=== PATIENT | male | born 1990 | race Native Hawaiian/Other Pacific Islander ===

== ENCOUNTER 2016-11-30 06:00 | Emergency (ER) | payer OTHER ==
[~2016-11-30] VITALS: Ht 167.6 cm; Wt 95.0 kg
[2016-11-30 06:08] VITALS: BP 128/81; PULSE 104; RESP 18; O2SAT 98
--- NOTE | 2016-11-30 06:29 | ED.REPORT ---
HPI-Abd Pain M Under 40 Date of Service Nov 30, 2016 ED Provider: Ron Diop MD 26 year old Filipino-speaking male presents to the ER accompanied by a female traffic inspector who translates complaining of two days of fever and sharp left testicle pain. He states that symptoms initially onset with pain, followed by the development of fever. Associated symptom of dysuria. Patient denies penile discharge, testicular swelling, and history of similar. Pain is exacerbated by standing. Symptoms have been treated with Tylenol at 04:00 this morning. Nursing Notes Stated Complaint: GROIN AND STOMACH PAIN,FEVER Chief Complaint: Male Abdominal Pain Nursing Notes Reviewed: Yes Allergies: Coded Allergies: No Known Allergies (Unverified Allergy, Unknown, 11/30/16) Scheduled Doxycycline Hyclate (Doxycycline Hyclate) 100 Mg Tablet 100 MG PO BID Scheduled PRN Ibuprofen (Ibuprofen) 800 Mg Tablet 800 MG PO TID PRN PRN For Pain Ondansetron ODT (Ondansetron ODT) 8 Mg Tab.rapdis 8 MG PO Q4H PRN PRN For Nausea oxyCODONE-Acetaminophen 5-325 mg (oxyCODONE-Acetaminophen 5-325 mg) 1 Each Tablet 1-2 TAB PO Q4H PRN PRN For Pain General Time Seen by MD: 06:26 Chief Complaint Testicular pain L Hx Obtained From: Patient Arrived By: Walk-in Sudden in Onset?: No Onset Occurred: 2 days ago Symptom Duration: Since onset Associated with: Reports: Dysuria Pertinent Negative: Pt denies other symptoms Pertinent Negative: Relieved by nothing Similar Sx Previous: No Past Medical History Past Medical History Healthy Past Surgical History denies Smoking History Current Every Day Smoker Social History Alcohol Use: Denies alcohol use Drug Use: Denies drug use Other Social History: Good social support Occupation lives by self Ambulatory Status Independent Review of Systems Constitutional: Reports: Fever Respiratory: Denies: Non-productive cough, Shortness of breath Cardiovascular: Denies: Chest pain GI: Denies: Constipation, Diarrhea Male: Reports Dysuria, Reports Testicular pain (Left), Denies Penile discharge Complete sys rev & neg: except as marked. Physical Exam Initial Vital Signs Vital Signs (First) Date Time Temp Pulse Resp B/P Pulse Ox O2 Delivery O2 Flow Rate FiO2 11/30/16 06:08 37.9 104 18 128/81 98 Room Air Initial VS: Reviewed, Vital signs abnormal Head / Eyes: Atraumatic, Normocephalic Neck: Supple, Non-tender, Full range of motion Skin: Warm, Dry, No cyanosis Neurologic: Alert, Oriented, Nonfocal General/Constitutional: Awake, Alert, Well developed, Well nourished Respiratory / Chest: Breath sounds NL, Breath sounds = bilat, No respiratory distress, No rales, No rhonchi, No wheezing, No stridor Cardiovascular: Regular rhythm, No murmurs, Peripheral circulation NL Heart Rate / Rhythm: Positive: Tachycardia Abdomen: Soft, Non-tender, No guarding, No rebound, No distention Male Genitourinary: Penis NL, No penile discharge, Testes NL, Scrotal/perineal skin NL Testes / Epidid / Scrotum: Positive: Testis tender L No scrotal edema. No lymphadenopathy. Right testicle nontender. Interpretation & Diagnostics PROCEDURE: US TESTICULAR SONOGRAM WITH DOPPLER INDICATIONS: L testicular pain TECHNIQUE: Real-time scanning was performed of the scrotum and testicles, with image documentation. Color and pulse Doppler interrogation was performed of both testicles. COMPARISON: None. FINDINGS: Right: Testicle is normal in size at 4.2 x 1.8 x 3.2 cm, and homogenous in echotexture. Epididymis is normal in overall size and morphology. No hydrocele or varicoceles. Overlying scrotal skin is normal in thickness. Left: Testicle is normal in size at 4.0 x 2.2 x 3.0 cm, and homogeneous in echotexture. Epididymis is normal in overall size and morphology. No hydrocele or varicoceles. Overlying scrotal skin is normal in thickness. Doppler: Color and pulse Doppler demonstrate increased, asymmetric flow within the left testicle and epididymis. IMPRESSION: 1. Increased, asymmetric flow involving the left testicle and epididymis suspicious for epididymoorchitis. Recommend clinical correlation. Dictated by: Jose ANDRADE Interpreted: Karen Saeed MD on 11/30/2016 at 9: 39 Transcribed by: AIDEN on 11/30/2016 at 9:39 Lab Results Interpretation Result Diagram: 11/30/16 0645 11/30/16 0645 Test 11/30/16 06:25 11/30/16 06:45 Urine Color Yellow (YELLOW) Urine Appearance Clear (CLEAR,HAZY) Urine pH 6.5 (5.0-8.0) Urine Specific [place] 1.020 (1.003-1.035) Urine Protein Tracemg/dL (NEG,TRACE) Urine Glucose (UA) Negativemg/dL (NEGATIVE) Urine Ketones Negativemg/dL (NEGATIVE) Urine Occult Blood Trace (NEGATIVE) Urine Nitrite Negative (NEGATIVE) Urine Bilirubin Negative (NEGATIVE) Urine Urobilinogen 4.0mg/dL (NORMAL) Urine Leukocyte Esterase Negative (NEGATIVE) Urine RBC 0-2/hpf (0-2) Urine WBC 0-5/hpf (0-5) Urine Epithelial Cells Occasional/hpf (NONE-MOD) Urine Crystals None seen (NONE SEEN) Urine Bacteria Few/hpf (NONE-FEW) Urine Hyaline Casts None/lpf (NONE) Urine Granular Casts Occasional (NONE SEEN) Urine Waxy Casts None seen (NONE SEEN) Urine Red Blood Cell Casts None seen (NONE SEEN) Urine White Blood Cell Casts None seen (NONE SEEN) Urine Mucus Present (None Seen) Urine Trichomonas None seen (NONE SEEN) Urine Yeast None (NONE SEEN) Urinalysis Comment None Urine Culture Reflexed Not indicated White Blood Count 13.8th/mm3 (3.8-10.1) Red Blood Count 5.16mil/mm3 (4.40-5.80) Hemoglobin 14.8g/dL (13.8-17.2) Hematocrit 43.7% (41.0-50.0) Mean Corpuscular Volume 84.7fL (81-100) Mean Corpuscular Hemoglobin 28.7pg (27.0-35.0) Mean Corpuscular Hemoglobin Concent 33.9% (32.0-37.0) Red Cell Distribution Width 12.6% (12.3-15.4) Platelet Count 188bil/L (150-400) Neutrophils (%) (Auto) 66.9% (40-74) Lymphocytes (%) (Auto) 17.1% (14-46) Monocytes (%) (Auto) 5.5% (4-12) Eosinophils (%) (Auto) 9.8% (0-5) Basophils (%) (Auto) 0.4% (0-3) Sodium Level 135mEq/L (134-144) Potassium Level 3.3mEq/L (3.5-5.2) Chloride Level 99mEq/L (97-108) Carbon Dioxide Level 22mmol/L (18-29) Blood Urea Nitrogen 10mg/dL (6-20) Creatinine 1.00mg/dL (0.76-1.27) Estimat Glomerular Filtration Rate 96mL/min (>59) Glucose Level 146mg/dL (60-99) Calcium Level 8.6mg/dL (8.5-10.1) Total Bilirubin 1.1mg/dL (0.0-1.2) Aspartate Amino Transf (AST/SGOT) 40U/L (0-50) Alanine Aminotransferase (ALT/SGPT) 56U/L (0-44) Alkaline Phosphatase 90U/L (25-150) Total Protein 8.0g/dL (6.4-8.4) Albumin 3.9g/dL (3.4-5.0) Hold [place] Top Tube Received (Received) Re-Eval/Medical Decision Med Decision/Clinical Course This is a 26-year-old male from the [facility] who presents complaining of fevers, and left testicular pain for the past 2 days. He denies dysuria, has no prior history of similar symptoms, he denies trauma. He denies testicular swelling. Denies ho STD. Came in because the pain is uncomfortable. Exams are low-grade fever, and he reports taking Tylenol earlier. He has a low- grade tachycardia. He has some tenderness less testicle, but there is no external cellulitis, there is no scrotal swelling, there is a normal cremasteric reflex, normal lie, there is some epididymal tenderness, there is no inguinal adenopathy, no checkers or lesions, and the penis is normal. There is no purulent discharge. Blood work was normal, cultures are pending. Urine GNC cultures are pending. UA was negativr- except for "few bacteria". Ultrasound was negative as for torsion as would be expected in this clinical setting, demonstrate hyperemia consistent with orchitis/epididymitis. Due the patient's age, the patient's treated with ceftriaxone and doxycycline. He received some IV fluids, pain medicine ibuprofen and is improved. He is being discharged with routine precautions and a continued course of doxycycline with urology follow-up. Routine precautions reviewed. Source of Hx: Old records Re-Evaluation/Progress : Time of Eval: 08:26 Re-Evaluation/Progress Note: Discussed lab and radiology results and plan to discharge. Patient is amenable to the plan. Return precautions given. All other questions addressed. Differential Diagnosis: Negative: Acute abdominal pain, Cellulitis, Cholangitis , Cholecystitis, Constipation, Esophageal rupture, Gun shot wound abdomen, Peritonitis, Torsion appendix teste L, Torsion appendix teste R, Torsion testicle L, Torsion testicle R, Urinary obstruction, Volvulus Counseled Regarding: Diagnosis, Lab results, Need for follow-up, When/why to return to ED Patient Discharge & Departure Primary Impression: Orchitis and epididymitis Disposition: Home Discharge Condition All VS Reviewed: Yes Condition: Stable Additional Instructions: 1. You have an infection of the testicle and epididymis (a structure that sits just above the testicle) causing her pain and fever. 2. It is difficult to reliably distinguished between a viral and bacterial infection in this setting, so treatment with antibiotics is recommended. You received an injection of the antibiotic ceftriaxone here in the emergency department, as well as a dose of orally of the medication doxycycline. 3. Continue the antibiotic doxycycline 100 mg twice a day for a total of 20 doses, within next dose being this evening. 4. Take ibuprofen 800 mg 3 times a day to help with pain and fever. 5. If needed for more severe pain, take oxycodone/APAP 05/325 one to 2 tabs up to every 4-6 hours. Note: This medication contains a narcotic and causes drowsiness. No driving for at least 4 hours after taking. 6. He usually takes 1-2 days before symptoms really start to improve, but symptoms should be improving after a couple of days. 7. I recommend calling to schedule a follow-up appointment with the urologist Dr. Brambila. 8. If he have new or worsening symptoms, or symptoms not clearly improving after a few days-return to the emergency department. 9. I have also written a prescription for the nausea medicine ondansetron, as occasionally the pain medicine can cause nausea. Referrals: NOPCP (PCP) Lyudmila Brambila MD Attestation Portions of this note were transcribed by Cole Zaragoza. I, Dr. Diop, personally performed the history, physical exam and medical decision-making; I reviewed and confirmed the accuracy of the information in the transcribed note. Signed by: Monico Bustillo, 11/30/2016 and 10:27. copies to: Lyudmila Brambila MD, Matthew F MD Nov 30, 2016 06:29 COLE ZARAGOZA Nov 30, 2016 06:39
[2016-11-30] MEDS ORDERED: HYDROmorphone 0.5 mg/0.5 mL iSecure Syringe IVPUSH PRN (06:30)
[2016-11-30] MEDS ORDERED: Ondansetron 2 mg/mL 2 mL Inj IVPUSH ONE (06:30)
[2016-11-30] MEDS ORDERED: cefTRIAXone Inj 2,000 MG in IV Premix 1 EACH IV ONE (06:40)
[2016-11-30 06:52] LABS: BASOPHILS % (AUTO) 0.4 % (0-3); EOSINOPHILS % (AUTO) 9.8 % (0-5); MONOCYTES % (AUTO) 5.5 % (4-12); Mean Corpuscular Hemoglobin 28.7 pg (27.0-35.0); Mean Corpuscular Volume 84.7 fL (81-100); NEUTROPHILS % (AUTO) 66.9 % (40-74); Platelet Count 188 bil/L (150-400)
[2016-11-30 07:00] VITALS: BP 119/71; PULSE 84; RESP 20; O2SAT 95
[2016-11-30 07:55] LABS: APPEARANCE,URINE CLEAR (CLEAR,HAZY); COLOR,URINE YELLOW (YELLOW); OCCULT BLOOD,URINE TRACE (NEGATIVE); PH,URINE 6.5 (5.0-8.0)
[2016-11-30] MEDS ORDERED: IBUP800T28 PO (08:10)
[2016-11-30] MEDS ORDERED: DOXY100T2 PO (08:10)
[2016-11-30] MEDS ORDERED: OXYC1TAB24 PO (08:10)
[2016-11-30] MEDS ORDERED: ONDA8TAB10 PO (08:10)
[2016-11-30 08:51] VITALS: PULSE 79; RESP 20; O2SAT 99
--- NOTE | 2016-11-30 09:39 | DRSVH ---
PROCEDURE: US TESTICULAR SONOGRAM WITH DOPPLER INDICATIONS: L testicular pain TECHNIQUE: Real-time scanning was performed of the scrotum and testicles, with image documentation. Color and p ulse Doppler interrogation was performed of both testicles. COMPARISON: None. FINDINGS: Right: Testicle is normal in size at 4.2 x 1.8 x 3.2 cm, and homogenous in echotexture. Epididymis is normal in overall size and morphology. No hydrocele or varicoceles. Overlying scrotal skin is no rmal in thickness. Left: Testicle is normal in size at 4.0 x 2.2 x 3.0 cm, and homogeneous in echotexture. Epididymis is normal in overall size and morphology. No hydrocele or varicoceles. Overlying scrotal skin is no rmal in thickness. Doppler: Color and pulse Doppler demonstrate increased, asymmetric flow within the left testicle and epididymis. IMPRESSION: 1. Increased, asymmetric flow involving the left testicle and epididymis suspicious for epididymoorch itis. Recommend clinical correlation. Dictated by: Jose ANDRADE Interpreted: Karen Saeed MD on 11/30/2016 at 9:39 Transcribed by: AIDEN on 11/30/2016 at 9:39 Approved by: Karen Saeed M.D. on 11/30/2016 at 16:31
== END 2016-11-30 08:52 | disposition home or self-care (01) ==
LOC: SED 06:00
DX: N45.3 Epididymo-orchitis (principal); F17.200 Nicotine dependence, unspecified, uncomplicated
CPT/HCPCS: 36415; 76870; 80053; 81000; 85025; 87491; 87591; 93975; 96365; 96375; 99285; J0696; J1170; J2405

== ENCOUNTER 2017-02-28 23:39 | Emergency (ER) | payer SELFPAY ==
[~2017-02-28] VITALS: Ht 167.6 cm; Wt 72.7 kg
[~2017-02-28 23:39] MED LIST: DOXY100T2 PO; IBUP800T28 PO; ONDA8TAB10 PO; OXYC1TAB24 PO
[2017-02-28 23:46] VITALS: BP 120/80; PULSE 79; RESP 16; O2SAT 99
--- NOTE | 2017-03-01 00:11 | ED.REPORT ---
HPI-Rash / Abscess Date of Service Mar 01, 2017 ED Provider: Nitin Kamara DO A 26 year old male with no pertinent medical history presents to the ED complaining of a possible abscess. The pt woke with a swollen left eye approximately one week ago. The swelling and pain have persisted since that point and he has since noticed a similar painful abscess in his left axilla. Nursing Notes Stated Complaint: EYE AND ARMPIT ABSCESS Chief Complaint: Skin Rash/Abscess Nursing Notes Reviewed: Yes Allergies: Coded Allergies: No Known Allergies (Unverified Allergy, Unknown, 11/30/16) Scheduled Doxycycline Hyclate (Doxycycline Hyclate) 100 Mg Tablet 100 MG PO BID Scheduled PRN Ibuprofen (Ibuprofen) 800 Mg Tablet 800 MG PO TID PRN PRN For Pain Ondansetron ODT (Ondansetron ODT) 8 Mg Tab.rapdis 8 MG PO Q4H PRN PRN For Nausea oxyCODONE-Acetaminophen 5-325 mg (oxyCODONE-Acetaminophen 5-325 mg) 1 Each Tablet 1-2 TAB PO Q4H PRN PRN For Pain General Time Seen by MD: 00:10 Chief Complaint Abscess Hx Obtained From: Patient Arrived By: Walk-in Onset Occurred: 1 week ago Symptom Duration: Since onset Recent Healthcare: No recent hospitalization, Recent doctor visit Similar Sx Previous: No Past Medical History Past Medical History none reported Past Surgical History none reported Smoking History Current Every Day Smoker Social History Alcohol Use: "Social" Drug Use: Denies drug use Other Social History: Good social support Occupation lives by self Ambulatory Status Independent Review of Systems Review of Systems Note: left eye abscess left axilla abscess Constitutional: Denies: Fever Respiratory: Denies: Non-productive cough, Shortness of breath Cardiovascular: Denies: Chest pain GI: Denies: Abdominal pain Skin: Denies Rash Complete sys rev & neg: except as marked. Physical Exam Initial Vital Signs Vital Signs (First) Date Time Temp Pulse Resp B/P Pulse Ox O2 Delivery O2 Flow Rate FiO2 02/28/17 23:46 36.6 79 16 120/80 99 Room Air Initial VS: Reviewed General/Constitutional: Awake, Alert Skin: Color NL, Warm, Dry abscess on left upper eyelid without ocular involvement abscess on left axilla Head / Eyes: Atraumatic, Normocephalic, PERRL, EOMI ENT: Atraumatic, Airway patent, Mucous membranes moist Respiratory / Chest: Atraumatic, Breath sounds NL, Breath sounds = bilat, No respiratory distress Cardiovascular: Heart rate NL, Regular rhythm, Heart sounds NL Upper Extremity / MS: Atraumatic, Full range of motion Lower Extremity / Pelvis / MS: Atraumatic, Full range of motion Neurologic: Oriented X3, Speech NL, No motor deficits, No sensory deficits Neck: Atraumatic, Supple, Full range of motion Abdomen: Atraumatic, Soft, Non-tender Back: Atraumatic, Full range of motion Psychiatric: Affect NL, Mood NL Interpretation & Diagnostics Lab Results Interpretation Result Diagram: 03/01/17 0030 03/01/17 0030 Test 03/01/17 00:30 White Blood Count 12.6th/mm3 (3.8-10.1) Red Blood Count 5.36mil/mm3 (4.40-5.80) Hemoglobin 15.6g/dL (13.8-17.2) Hematocrit 46.5% (41.0-50.0) Mean Corpuscular Volume 86.8fL (81-100) Mean Corpuscular Hemoglobin 29.1pg (27.0-35.0) Mean Corpuscular Hemoglobin Concent 33.5% (32.0-37.0) Red Cell Distribution Width 13.1% (12.3-15.4) Platelet Count 233bil/L (150-400) Neutrophils (%) (Auto) 62.3% (40-74) Lymphocytes (%) (Auto) 26.5% (14-46) Monocytes (%) (Auto) 7.3% (4-12) Eosinophils (%) (Auto) 3.3% (0-5) Basophils (%) (Auto) 0.2% (0-3) Hold Blue Top Tube Received (Received) Sodium Level 136mEq/L (134-144) Potassium Level 3.4mEq/L (3.5-5.2) Chloride Level 99mEq/L (97-108) Carbon Dioxide Level 22mmol/L (18-29) Blood Urea Nitrogen 12mg/dL (6-20) Creatinine 0.96mg/dL (0.76-1.27) Estimat Glomerular Filtration Rate 101mL/min (>59) Glucose Level 107mg/dL (60-99) Calcium Level 8.8mg/dL (8.5-10.1) Total Bilirubin 0.2mg/dL (0.0-1.2) Aspartate Amino Transf (AST/SGOT) 18U/L (0-50) Alanine Aminotransferase (ALT/SGPT) 24U/L (0-44) Alkaline Phosphatase 99U/L (25-150) Total Protein 7.8g/dL (6.4-8.4) Albumin 4.0g/dL (3.4-5.0) Pulse Oximetry Interpretation Pulse Oximetry Interpretation: 99% on room air Pulse Oximetry: Pulse Ox normal Procedures Incision & Drainage Abscess I & D Abscess: aspirated 5 mL of watery purulent material small incision for further drainage Time: : Procedure Performed by: ED physician Consent / Setup / Site Prep: Informed consent provided, Consent from patient , Time-out performed, Hand hygiene observed, Stand sterile technique, Standard surgical scrub, Sterile drapes applied Location of Abscess: left eye Skin Preparation Agent: Normal saline Local Anesthesia: Lidocaine 1% Incised Abscess with Scalpel: #11 Pus Drained: Bloody Post-Procedure / Complications: Packing placed, Culture obtained, Gram stain ordered, Dressing applied, No complications, Condition improved, Tolerated procedure well, Patient stable Time: Procedure Performed by: ED physician Consent / Setup / Site Prep: Informed consent provided, Consent from parent , Time-out performed, Hand hygiene observed, Stand sterile technique, Standard surgical scrub, Sterile drapes applied Location of Abscess: left axilla Skin Preparation Agent: Normal saline Local Anesthesia: Lidocaine 1% Incised Abscess with Scalpel: #11 Pus Drained: Purulent discharge (5 mL of yellow purulent material) Post-Procedure / Complications: Packing placed, Culture obtained, Dressing applied, No complications, Condition improved, Tolerated procedure well, Patient stable Re-Eval/Medical Decision Re-Evaluation/Progress #1: Time of Eval: Patient Status: Condition improved Re-Evaluation/Progress Note: Pt rechecked and I&D of the left eye is performed. Pt tolerated the procedure well and there were no complications. Re-Evaluation/Progress #2: Time of Eval: Patient Status: Condition improved Re-Evaluation/Progress Note: Pt rechecked and I&D of the left eye is performed. Pt tolerated the procedure well and there were no complications. The diagnosis and plan for discharge are discussed. The pt understands and agrees with the plan. All questions are addressed at this time. Consultation : Referral / Consult Name: Meenakshi Guardado MD Consulted With: Yarn Packer Call Returned at: 00:45 Polisher Balance Screwhead: Will see in office Note: Spoke with Dr. Guardado, opthalmology, regarding pt's case. Dr. Guardado agrees to see the pt in follow up. Counseled Regarding: Diagnosis, Lab results, Need for follow-up, When/why to return to ED Discharge & Departure Impression: Primary Impression: Abscess of left eyelid Additional Impressions: Cellulitis of left eyelid Abscess of left axilla Disposition: Home Discharge Condition All VS Reviewed: Yes Condition: Stable Patient Instructions: Abscess Incision and Drainage (ED) Additional Instructions: The CT showed no evidence of abscess or periorbital cellulitis. Take two Bactrim tablets twice daily for seven days. Augmentin twice daily for seven days. Take 1-2 [place] every 6 hours as needed for severe pain. Do not drive, drink alcohol, or consume acetaminophen while taking the [place]. Call Dr. Guardado today. She has agreed to see you in follow up. Take a copy of your CT scan with you. A wound culture has been taken which will be ready in several days. Return to the emergency department if you develop any new or worsening symptoms including if the redness grows in size. Referrals: Meenakshi Guardado MD [facility] Scribe Attestation Portions of this note were transcribed by Nupur Barron. I, Dr. Kamara personally performed the history, physical exam and medical decision-making; I reviewed and confirmed the accuracy of the information in the transcribed note. Signed by: Monico Jensen, 03/01/17 and 0309. copies to: Meenakshi Guardado MD; [facility] Nitin Kamara DO Mar 01, 2017 00:11 NUPUR BARRON Mar 01, 2017 00:18
[2017-03-01] MEDS ORDERED: Clindamycin Inj 900 MG in IV Premix 1 EACH IV ONE (00:15)
[2017-03-01] MEDS ORDERED: Lidocaine 1% 50 mL Inj NERVEBLOCK ONE (00:20)
[2017-03-01 00:47] LABS: BASOPHILS % (AUTO) 0.2 % (0-3); EOSINOPHILS % (AUTO) 3.3 % (0-5); MONOCYTES % (AUTO) 7.3 % (4-12); Mean Corpuscular Hemoglobin 29.1 pg (27.0-35.0); Mean Corpuscular Volume 86.8 fL (81-100); NEUTROPHILS % (AUTO) 62.3 % (40-74); Platelet Count 233 bil/L (150-400)
[2017-03-01] MEDS ORDERED: HYDROmorphone 0.5 mg/0.5 mL iSecure Syringe IVPUSH ONE (02:35)
[2017-03-01] MEDS ORDERED: _HYDROcodone/APAP 5-325 mg Tablet PO PRN (03:05)
[2017-03-01 03:20] VITALS: BP 126/86; PULSE 86; RESP 16; O2SAT 100
--- NOTE | 2017-03-01 08:40 | DRSVH ---
PROCEDURE: CT FACE WITH CONTRAST ([id number]) INDICATIONS: left periorbital abscess and cellulitis TECHNIQUE: After the administration of intravenous contrast, 3.0 mm axial sections acquired from the mid-neck to the frontal sinuses, with coronal reformatting. For radiation dose reduction, the following was use d: automated exposure control. COMPARISON: None. FINDINGS: Image quality: Excellent. Soft tissues: There is a moderate amount of left preorbital soft tissue swelling. No edema, mass, or fluid within the intraconal or intraorbital space. The globes have a symmetric, intact appearance. No other soft tissue swelling or soft tissue masses. No discrete fluid amenable to percutaneous drainag e. Vascular: Visualized vascular structures appear patent throughout. Bony vascular foramina and canal s appear normal. Bones: Facial bones appear intact, without fractures, erosions, or destruction. Visualized portions of the skull base and auditory canals also appear normal. Sinuses: There is a small left maxillary sinus mucous retention cyst. Paranasal sinuses are otherwise aerated without fluid levels, mucosal thickening, or mucoceles. Mastoid air cells are aerated. IMPRESSION: 1. Left preorbital cellulitis. No findings to suggest orbital cellulitis or abscess amenable to drain age. Note: The preliminary [facility] interpretation and the final report are concordant. Dictated by: Marlene Camejo M.D. on 03/01/2017 at 8:36 Approved by: Marlene Camejo M.D. on 03/01/2017 at 8:38
== END 2017-03-01 03:21 | disposition home or self-care (01) ==
LOC: SED 23:39
DX: H00.036 Abscess of eyelid left eye, unspecified eyelid (principal); L02.412 Cutaneous abscess of left axilla; F17.200 Nicotine dependence, unspecified, uncomplicated
CPT/HCPCS: 10061; 36415; 70487; 80053; 85025; 87070; 87077; 87186; 87205; 96365; 96375; 99285; J1170; Q9967